=== PATIENT | male | born 1985 | race Caucasian/White ===

== ENCOUNTER 2024-06-11 18:02 | Emergency (ER) | payer MEDICAID, OTHER ==
[~2024-06-11] VITALS: Ht 160 cm; Wt 70.3 kg
[2024-06-11 18:39] VITALS: TEMP 36.6; O2SAT 99
[2024-06-11] MEDS: BACITRACIN ZINC OINT UDPKT TOP ONE (19:30)
[2024-06-11] MEDS: LIDOCAINE HCL/PF 1% 10 MG/ML 5ML VIAL INFIL ONE (19:30)
[2024-06-11] MEDS: TETANUS, DIPHTHERIA, PERTUSSIS VAC/PF 0.5ML (>10YR OLD) IM ONE (19:47)
[2024-06-11 22:03] VITALS: BP 139/81; PULSE 73; RESP 12; O2SAT 99
== END 2024-06-11 22:07 | disposition home or self-care (01) ==
LOC: ER 18:02
DX: S61.213A Laceration without foreign body of left middle finger without damage to nail, initial encounter (principal); W26.0XXA Contact with knife, initial encounter; Y93.89 Activity, other specified; Y92.89 Other specified places as the place of occurrence of the external cause; Y99.8 Other external cause status
CPT/HCPCS: 73130; 90715; 12002; 90471; 99283; J2003; Z7610 ×2